=== PATIENT | female | born 1980 ===

== ENCOUNTER → 2022-05-07 14:21 | Outpatient (BNVA) | payer MEDICARE, MEDICAID, SELFPAY | PROVIDERS: Family Provider Family Medicine; Visit Provider Podiatrist Foot & Ankle Surgery | DX: T84.84XA Pain due to internal orthopedic prosthetic devices, implants and grafts, initial encounter (principal); Y79.2 Prosthetic and other implants, materials and accessory orthopedic devices associated with adverse incidents | CPT/HCPCS: 73630; 99204 ==

== ENCOUNTER → 2022-10-11 09:25 | Outpatient (BNVA) | payer MEDICARE, MEDICAID, SELFPAY | PROVIDERS: Visit Provider Podiatrist Foot & Ankle Surgery | DX: T84.84XA Pain due to internal orthopedic prosthetic devices, implants and grafts, initial encounter (principal); Y79.2 Prosthetic and other implants, materials and accessory orthopedic devices associated with adverse incidents | CPT/HCPCS: 99213 ==

== ENCOUNTER 2022-10-29 10:02 | Day surgery (SDC) | payer MEDICARE, MEDICAID, SELFPAY ==
[2022-10-28 12:02] VITALS: BMI 24.0
[2022-10-29] VITALS (7 sets, daily range): BP systolic 108–133; BP diastolic 75–97; PULSE 95–110; RESP 15–18; TEMP 35.9–36.2; O2SAT 96–99
--- NOTE | 2022-10-29 | XR_ITS ---
WS: [id number] C-ARM RADIOGRAPHS LEFT FOOT; 1 IMAGES HISTORY: KELSIE PICS COMPARISON: LEFT foot radiograph 05/07/2022 Since the prior examination the orthopedic screw within the third toe has been removed. Bony detail i s limited otherwise. XR/XR foot LT 2V [id number] IMPRESSION: Interval screw removal from the third toe.
[2022-10-29] MEDS: sodium chloride 0.9% 1,000 ML 30 ML IV (10:37)
[2022-10-29] MEDS: acetaminophen 1,000 MG/100 ML PIGGYBACK 400 MG IV (10:39)
[2022-10-29] MEDS: HYDROmorphone 1 mg/mL INJ 1 mL 0.5 MG IVP (10:49)
--- NOTE | 2022-10-29 11:42 | PC.NURSE ---
Resting in OPS- Mother in room with patient. No complaints at present. Waiting for Dr. Ring.
--- NOTE | 2022-10-29 11:54 | ANES.PREANE2 ---
Pre-Anesthetic Assessment Height/Weight: Height 1.63 m Weight 63.503 kg Resp Pulse Ox O2 Del Method 18 98 Room Air 10/29/22 10:49 10/29/22 10:49 10/29/22 10:30 Preop Diagnosis: Painful orthopedic hardware left foot Operation Date: 10/29/22 12:20 Proposed Procedures p ?Left foot 3rd toe hardware removal CPT 72019,T84.84XA(Left) - Chris Ring DPM Familial anesthetic complications: none Was Beta Anjum taken within 24 hours: N/A Was Clonidine taken within 24 hours: N/A Last intake: Intake Last Liquid Date 10/28/22 Last Liquid Time 23:30 Last Solid Date 10/28/22 Last Solid Time 23:30 Social Tobacco and No alcohol Exam alert, oriented x 3 and regular rate & rhythm Airway Submandibular: within normal limits Cervical ROM: within normal limits Mallampati: Class II Dentition: chipped and loose Comments: Comments: Poor dentition, missing most Pulmonary Chronic Obstructive Pulmonary Disease Anesthetic Plan ASA status: 2 Anesthesia: Choice Medications/Allergies Home Medications Medication Instructions Recorded Confirmed Last Taken Type doxycycline hyclate 100 mg tablet 100 mg PO BID #20 tabs 10/11/22 10/28/22 10/28/22 Rx Allergies Allergy/AdvReac Type Severity Reaction Status Date / Time cefaclor [From Ceclor] Allergy ALGY-Hives Verified 10/28/22 11:59 latex Allergy ALGY-Bliste Verified 10/28/22 11:59 r metoclopramide [From Reglan] Allergy ADR-Nausea Verified 10/28/22 11:59 penicillin G Allergy hives Verified 10/28/22 11:59 Sulfa (Sulfonamide Allergy hives Verified 10/28/22 11:59 Antibiotics) compazine Allergy nausea Uncoded 10/28/22 11:59 toradol Allergy ADR-Agitate Uncoded 10/28/22 11:59 d Current Medications Generic Name Dose Route Start Last Admin Trade Name Freq PRN Reason Stop Dose Admin Hydromorphone HCl 0.5 mg 10/29/22 10:21 10/29/22 10:49 Hydromorphone 1 Mg/Ml Inj 1 Ml IVP 0.5 mg ONCE PRN Administration For preop pain/anxiety Sodium Chloride 1,000 mls @ 30 mls/hr 10/29/22 10:30 10/29/22 10:37 Sodium Chloride 0.9% IV 10/30/22 10:29 30 mls/hr .Q24H DEUARDO Administration PFSH Anesthesia Family History Mother Chronic kidney disease (CKD) Brother Chronic kidney disease (CKD) Social History Smoking and tobacco status: current every day smoker cigarettes Packs smoked per day: 0.5 Years cigarettes smoked: 20 Data Anesthesia Cardiac Studies: No Data to Display
[2022-10-29] MEDS: midazolam 1 mg/mL INJ 2 mL 2 MG IVP (12:11)
--- NOTE | 2022-10-29 12:13 | W.PM.OPSUD ---
Surgery/Procedure H&P Update DATE OF PROCEDURE: October 29, 2022 DATE H&P PERFORMED: 10/11/22 CHANGES TO PREVIOUS DOCUMENTATION: No changes PREOP DIAGNOSIS: Painful orthopedic hardware left foot PLANNED PROCEDURE: Operation Date: 10/29/22 12:20 Proposed Procedures p ?Left foot 3rd toe hardware removal CPT 29564,T84.84XA(Left) - Chris Ring DPM
[2022-10-29] MEDS: clindamycin 600 MG/50 ML PREMIX 100 MG IV (12:27)
--- NOTE | 2022-10-29 13:48 | PC.NURSE ---
Pt had requested her pin after surgery when we got to the vehicle to go home. I told her if we could we would mail it to her. Called surgery and was told that we could not do that.
--- NOTE | 2022-10-29 14:15 | PC.NURSE ---
MUNIRA Chow from OR brought out Pin and she will give to Dr. Ring to give to the patient at her follow up appointment.
--- NOTE | 2022-10-29 14:35 | ANE.PACU2 ---
Inpatient post-anesthesia follow up: Airway intact: Yes Vital signs: Temperature 96.7 F Pulse Rate 99 Respiratory Rate 16 Blood Pressure 124/97 Pulse Oximetry 99 Oxygen Delivery Me thod Room Air Oxygen Flow Rate Fraction of Inspir ed Oxygen Hydration adequate: Yes Nausea and vomiting: No Pain level: 1 Mental status: Baseline
--- NOTE | 2022-10-29 19:30 | P.OP_ITS ---
Operative Report Date of procedure: October 29, 2022 Pre-op diagnosis: Preop Diagnosis Painful orthopedic hardware left foot Post-op diagnosis: Same Post-op findings: Failed orthopedic hardware left foot third digit Procedure done: Deep hardware removal left foot third digit CPT 62992 Specimens removed/disposition: Orthopedic screw removed from left foot third digit -Cultures of orthopedic hardware sent to [facility] for ID and sensitivity Surgeon: Dr. Chris Ring, D.P.M. Estimated blood loss: Less than 5 cc Complications: None Findings: See above Procedure: Patient is a 42-year-old female that has a history of left foot third digit failed orthopedic hardware. The patient has had the aforementioned chief complaint for some time. Conservative treatment measures have been attempted and the patient has opted for surgical intervention at this time. A lengthy discussion regarding the procedure, including risks and complications has been h ad with the patient and is noted in the recent clinic note. Written and verbal consent have been obtained. All patient questions have been answered to the patient?s satisfaction. No written or verbal guarantees have been given or implied. The patient has been NPO since midnight. The history has been reviewed and the history and physical is current. The signed consent was confirmed and placed in the patient chart. Patient imaging has been reviewed and is consistent with the diagnosis. Under mild sedation, the patient was brought into the operating room and placed on the table in the supine position. IV antibiotics were given by the anesthesia team as preoperative surgical prophylaxis. IV sedation was then performed by the anesthesiateam. A local field block was performed using 0.5% Marcaine plain A pneumatic tourniquet was then placed about the left ankle. The operative extremity was then prepped and draped in the usual fashion. After preparation the following procedure was then performed. The tourniquet was not inflated. Attention was directed to the distal aspect of the third digit of the left foot. A #15 blade was used to make a stab incision in the distal aspect of the digit. Dissection was carried down with a mosquito hemostat to the head of the screw. Dissection was carried out around the head of the screw. The screw was then grasped with a mosquito hemostat and removed from the third digit of the left foot. C-arm imaging was used to confirm removal of the screw in its entirety. No remaining orthopedic hardware remained. Culture swabs were used to culture the orthopedic hardware upon removal. This was sent to [facility] for ID and sensitivity. The site was then irrigated with copious amounts sterile saline before attention was directed to closure. 4-0 nylon was used to close the distal stab incision using simple ruptured sutures. The patient tolerated the procedure and anesthesia well and without complication. The patient was transported from the operating room to the recovery room with vital signs stable and vascular status intact to all digits of the left foot. The patient was given both written and verbal instructions to remain weightbearing as tolerated to the operative extremity, to keep dressings/splint clean, dry and intact and to take pain medication as directed. The patient will follow-up in the outpatient setting at their scheduled appointment. The patient was discharged with my personal number and was instructed to call if any questions or issues should arise. They were discharged home once anesthesia criteria was met.
== END 2022-10-29 13:40 | disposition home or self-care (01) ==
PROVIDERS: Visit Provider Podiatrist Foot & Ankle Surgery
PROC: (CPT 20680; principal; 2022-10-29 12:00)
DX: T84.84XA Pain due to internal orthopedic prosthetic devices, implants and grafts, initial encounter (principal); Y79.2 Prosthetic and other implants, materials and accessory orthopedic devices associated with adverse incidents; J44.9 Chronic obstructive pulmonary disease, unspecified; F17.210 Nicotine dependence, cigarettes, uncomplicated
CPT/HCPCS: 20680; 73620; 76000; 87070; 87075; 87077; 87186; J0131; J1170; J2250; J2704; J3490; J7030

== ENCOUNTER → 2022-11-11 13:07 | Outpatient (BNVA) | payer MEDICARE, MEDICAID, SELFPAY | PROVIDERS: Visit Provider Podiatrist Foot & Ankle Surgery | DX: Z98.890 Other specified postprocedural states (principal) | CPT/HCPCS: 99024 ==